=== PATIENT | female | born 1995 | race Caucasian/White ===

== ENCOUNTER 2020-02-28 10:16 | Inpatient (IN) ==
[~2020-02-28 10:16] MED LIST: Azithromycin 500 MG in 0.9 % Sodium Chloride 250 ML IVPB ONE; EPHEDrine 50 MG/ML VIAL IVP PRN; Epidural Premix (fent/bupiv) 110 ML EP SCH; Famotidine 20 MG/2 ML VIAL IVP PRN; Metoclopramide 10 MG/2 ML VIAL IVP PRN; Naloxone 0.4 MG/ML INJ IVP PRN; Ondansetron 4 MG/2 ML VIAL IVP PRN
[2020-02-28] MEDS ORDERED: Ringers Solution, Lactated 1,000 ML IVC SCH (10:30)
[2020-02-28 11:37] LABS: Basophils % 0.2 %; Eosinophils # 0.1 K/mcL (0.0-0.6); Eosinophils % 0.4 %; Hematocrit 37.7 % (35.3-44.9); Hemoglobin 11.9 g/dL (11.5-15.4); Immature Granulocytes % 0.5 % (0-4); Lymphocytes # 2.7 K/mcL (0.6-4.6); Lymphocytes % 18.9 %; Mean Corpuscular HGB Conc 31.6 g/dL (31.6-35.5); Mean Corpuscular Hemoglobin 28.2 pg (28.0-33.3); Mean Corpuscular Volume 89.3 fL (83.0-100.0); Mean Platelet Volume 11.9 fL (9.4-12.4); Monocytes # 0.7 K/mcL (0.0-1.3); Monocytes % 4.8 %; Neutrophils # 10.8 K/mcL (1.6-8.9); Platelet Count 232 K/mcL (140-400); Red Blood Count 4.22 M/mcL (3.82-4.97); Red Cell Distribution Width 14.1 % (11.5-14.5); Segmented Neutrophils % 75.2 %; White Blood Count 14.4 K/mcL (4.3-11.1)
[2020-02-28] MEDS: *HR* FentaNYL (PF) 100 MCG/2 ML VIAL IVP PRN ×2 (11:37→14:31)
[2020-02-28 12:09] LABS: Amphetamine Screen,Urine Negative ng/mL (Cutoff=1000); Barbiturate Screen,Urine Negative ng/mL (Cutoff=200); Benzodiazepines Screen,Urine Negative ng/mL (Cutoff=200); Cannabinoid Screen,Urine Negative ng/mL (Cutoff = 50); Cocaine Screen,Urine Negative ng/mL (Cutoff= 300); Opiate Screen,Urine Negative ng/mL (Cutoff=300); Phencyclidine Screen,Urine Negative ng/mL (Cutoff=25)
[2020-02-28] MEDS ORDERED: Oxytocin 20 units/ LR 1000 mL 20 UNIT/1,000 ML BAG IVC SCH (17:15)
[2020-02-28] MEDS ORDERED: *HR* FentaNYL (PF) 100 MCG/2 ML VIAL IVP PRN (17:41)
[2020-02-28] MEDS ORDERED: Ringers Solution, Lactated 1,000 ML ONE (19:18)
[2020-02-28] MEDS ORDERED: Ropivacaine/PF 0.2% 20 ML VIAL ONE (20:24)
[2020-02-29] MEDS ORDERED: Lidocaine 1% 20 ML MDV ONE (00:24)
[2020-02-29] MEDS ORDERED: Measles/Mumps/Rubella Vacc 0.5 ML VIAL SQ PRN (01:39)
[2020-02-29] MEDS ORDERED: Oxytocin 20 units/ LR 1000 mL 20 UNIT/1,000 ML BAG IVC SCH (01:39)
[2020-02-29] MEDS ORDERED: Lanolin 7 G OINT...G. TP PRN (01:39)
[2020-02-29] MEDS ORDERED: Benzocaine/Menthol 56 GM AEROSOL SPRAY TP PRN (01:39)
[2020-02-29] MEDS ORDERED: *HR* HYDROcodone/Acet 5/325 mg TABLET PO PRN (01:39)
[2020-02-29] MEDS: Ibuprofen 600 MG TABLET PO PRN ×2 (08:08→18:47)
[2020-02-29] MEDS: Prenatal Vit/FA 1 EACH TABLET PO SCH (08:08)
[2020-02-29] MEDS: Acetaminophen 325 MG TABLET PO PRN (18:47)
[2020-02-29 20:11] VITALS: BP 113/67
[2020-03-01] MEDS: Ibuprofen 600 MG TABLET PO PRN (03:21)
[2020-03-01] MEDS: Acetaminophen 325 MG TABLET PO PRN (08:24)
[2020-03-01] MEDS: Prenatal Vit/FA 1 EACH TABLET PO SCH (08:24)
== END 2020-03-01 12:02 | disposition home or self-care (01) | DRG 807 ==
LOC: 1NENULAB → 1NENUOBS 02-29 02:45
PROVIDERS: ADMIT Advanced Practice Midwife; ATTEND Advanced Practice Midwife

== ENCOUNTER 2021-10-06 08:39 | Inpatient (IN) ==
[2021-10-06] MEDS ORDERED: Famotidine 20 MG/2 ML VIAL IVP PRN (09:45)
[2021-10-06] MEDS ORDERED: Metoclopramide 10 MG/2 ML VIAL IVP PRN (09:45)
[2021-10-06] MEDS ORDERED: Naloxone 0.4 MG/ML INJ IVP PRN ×2 (09:45→09:50)
[2021-10-06] MEDS ORDERED: Ondansetron 4 MG/2 ML VIAL IVP PRN ×2 (09:45→09:50)
[2021-10-06] MEDS ORDERED: Ropivacaine/PF 0.2% 20 ML VIAL EP ONE (09:50)
[2021-10-06] MEDS ORDERED: *HR* FentaNYL (PF) 100 MCG/2 ML VIAL EP ONE (09:50)
[2021-10-06] MEDS ORDERED: EPHEDrine 50 MG/ML VIAL IVP PRN (09:50)
[2021-10-06] MEDS ORDERED: Epidural Premix (fent/bupiv) 110 ML EP SCH (10:00)
[2021-10-06 10:35] LABS: Basophils % 0.2 %; Eosinophils # 0.1 K/mcL (0.0-0.6); Eosinophils % 0.6 %; Hematocrit 34.9 % (35.3-44.9); Hemoglobin 11.3 g/dL (11.5-15.4); Immature Granulocytes % 0.5 % (0-4); Lymphocytes # 1.9 K/mcL (0.6-4.6); Lymphocytes % 17.1 %; Mean Corpuscular HGB Conc 32.4 g/dL (31.6-35.5); Mean Corpuscular Hemoglobin 28.8 pg (28.0-33.3); Mean Platelet Volume 10.3 fL (9.4-12.4); Monocytes # 0.5 K/mcL (0.0-1.3); Neutrophils # 8.4 K/mcL (1.6-8.9); Platelet Count 241 K/mcL (140-400); Red Blood Count 3.92 M/mcL (3.82-4.97); Red Cell Distribution Width 14.3 % (11.5-14.5); Segmented Neutrophils % 76.6 %; White Blood Count 10.9 K/mcL (4.3-11.1)
[2021-10-06] MEDS: Ringers Solution, Lactated 1,000 ML IVC SCH ×2 (11:27→14:45)
[2021-10-06 13:41] LABS: Amphetamine Screen,Urine Negative ng/mL (Cutoff=1000); Barbiturate Screen,Urine Negative ng/mL (Cutoff=200); Benzodiazepines Screen,Urine Negative ng/mL (Cutoff=200); Cannabinoid Screen,Urine Negative ng/mL (Cutoff = 50); Cocaine Screen,Urine Negative ng/mL (Cutoff= 300); Opiate Screen,Urine Negative ng/mL (Cutoff=300); Phencyclidine Screen,Urine Negative ng/mL (Cutoff=25)
[2021-10-06] MEDS ORDERED: Oxytocin 30 UNIT/503 ML BAG IVC ONE ×2 (14:25→14:33)
[2021-10-06] MEDS ORDERED: Ibuprofen 600 MG TABLET PO ONE (16:20)
[2021-10-06] MEDS ORDERED: Benzocaine/Menthol 56 GM AEROSOL SPRAY TP PRN (18:46)
[2021-10-06] MEDS ORDERED: Ondansetron ODT 4 MG TAB.RAPDIS SL PRN (18:46)
[2021-10-06] MEDS ORDERED: Lanolin 7 G OINT...G. TP PRN (18:46)
[2021-10-06] MEDS ORDERED: Oxytocin 30 UNIT/503 ML BAG IVC SCH (18:46)
[2021-10-06] MEDS ORDERED: Measles/Mumps/Rubella Vacc 0.5 ML VIAL SQ PRN (18:46)
[2021-10-06 19:05] VITALS: O2SAT 97
[2021-10-06] MEDS: Acetaminophen 325 MG TABLET PO SCH (20:51)
[2021-10-07] MEDS: Ibuprofen 600 MG TABLET PO SCH ×2 (00:09→08:53)
[2021-10-07] MEDS: Acetaminophen 325 MG TABLET PO SCH ×2 (04:49→08:53)
[2021-10-07 07:11] VITALS: BP 104/66; PULSE 79; TEMP 97.8
[2021-10-07] MEDS ORDERED: Prenatal Vit/FA 1 EACH TABLET PO SCH (09:00)
== END 2021-10-07 17:42 | disposition home or self-care (01) | DRG 807 ==
LOC: 1NENULAB 08:39 → 1NENUOBS 18:49
PROVIDERS: ADMIT Advanced Practice Midwife; ATTEND Advanced Practice Midwife